=== PATIENT | male | born 1970 | race Caucasian/White ===

== ENCOUNTER 2017-10-13 06:14 | Day surgery (SDC) | payer OTHER ==
[2017-10-13] MEDS: BUPIVACAINE 0.25% (MPF) 30 ML INJ
[2017-10-13] MEDS ORDERED: CEFAZOLIN 2 GM/50 ML (PMX) 50 ML IVPB (06:30)
[2017-10-13] MEDS ORDERED: CEFAZOLIN 1 GM INJ (07:24)
[2017-10-13] MEDS ORDERED: MIDAZOLAM 1 MG/ML 2 ML INJ (07:24)
[2017-10-13] MEDS ORDERED: PROPOFOL 20 ML (07:24)
[2017-10-13] MEDS ORDERED: ROCURONIUM 50 MG INJ (07:24)
[2017-10-13] MEDS ORDERED: KETOROLAC 30 MG INJ (07:53)
[2017-10-13] MEDS ORDERED: ONDANSETRON 4 MG INJ (07:53)
[2017-10-13] MEDS ORDERED: DEXAMETHASONE 4 MG/ML 1 ML INJ (07:53)
[2017-10-13] MEDS ORDERED: METOCLOPRAMIDE 10 MG INJ (07:53)
[2017-10-13] MEDS ORDERED: HYDROmorphONE (0.2 MG/ML) 10ML SYG IV ×3 (08:00)
[2017-10-13] MEDS ORDERED: FENTAnyl 50 MCG/ML VIAL IV ×3 (08:00)
[2017-10-13] MEDS ORDERED: ONDANSETRON 4 MG INJ IV (08:00)
[2017-10-13] MEDS ORDERED: MEPERIDINE 25 MG INJ IV (08:00)
[2017-10-13] MEDS ORDERED: OXYCODONE/ACETAMINOPHEN (5/325) TAB PO ×2 (08:00)
[2017-10-13] MEDS ORDERED: DIPHENHYDRAMINE 50 MG INJ IV (08:00)
[2017-10-13] MEDS ORDERED: EPHEDrine SULFATE 50 MG/5 ML SYG IV (08:00)
[2017-10-13] MEDS ORDERED: LABETALOL HCL 20MG INJ IV (08:00)
[2017-10-13] MEDS ORDERED: METOCLOPRAMIDE 10 MG INJ IV (08:00)
[2017-10-13] MEDS ORDERED: SUGAMMADEX SODIUM 200 MG/2 ML VIAL IV (08:38)
[2017-10-13 08:43] LABS: ADD MAN DIFF? NO
[2017-10-13 08:45] LABS: WHITE BLOOD COUNT 3.3 10^3/ul (4.8-10.8)
[2017-10-13 08:45] LABS: BASOPHILS % 0.9 % (0.0-2.0); EOSINOPHILS % 0.9 % (0.0-7.0); HEMATOCRIT 42.5 % (42.0-52.0); HEMOGLOBIN 14.8 g/dl (14.0-18.0); LYMPHOCYTES # 1.6 10^3/ul (0.8-2.9); LYMPHOCYTES % 48.3 % (15.0-51.0); MEAN CORPUSCULAR HEMOGLOBIN 33.5 pg (29.0-33.0); MEAN CORPUSCULAR HGB CONC 34.8 g/dl (32.0-37.0); MEAN CORPUSCULAR VOLUME 96.2 fl (82.0-101.0); MONOCYTE # 0.3 10^3/ul (0.3-0.9); MONOCYTES % 8.3 % (0.0-11.0); NEUTROPHIL # 1.4 10^3/ul (1.6-7.5); NEUTROPHILS % 41.6 % (39.0-77.0); PLATELET COUNT 279 10^3/UL (140-415); RED BLOOD COUNT 4.42 10^6/ul (4.70-6.10)
[2017-10-13 08:55] LABS: PROTIME 12.2 Sec (11.9-14.9)
[2017-10-13 08:56] LABS: HOLD TRANSMISSIONS 1
[2017-10-13 08:59] LABS: ALANINE AMINOTRANSFERASE 33 IU/L (13-69); ALBUMIN 3.9 g/dl (3.3-4.9); ALBUMIN/GLOBULIN RATIO 1.34; ALKALINE PHOSPHATASE 62 IU/L (42-121); ANION GAP 13 (8-16); ASPARTATE AMINO TRANSFERASE 20 IU/L (15-46); BILIRUBIN,INDIRECT 0.1 mg/dl (0-1.1); BILIRUBIN,TOTAL 0.1 mg/dl (0.2-1.3); CARBON DIOXIDE 27 mmol/L (21-31); CHLORIDE 106 mmol/L (97-110); GLUCOSE 106 mg/dl (70-220); TOTAL PROTEIN 6.8 g/dl (6.1-8.1)
[2017-10-13 09:00] LABS: BLOOD UREA NITROGEN 15 mg/dl (7-20); CALCIUM 9.5 mg/dl (8.4-10.2); CREATININE 0.69 mg/dl (0.61-1.24); POTASSIUM 3.9 mmol/L (3.5-5.1); SODIUM 142 mmol/L (135-144)
[2017-10-13 10:05] LABS: ERYTHROCYTE SEDIMENTATION RATE 6 mm/Hr (0-15)
== END 2017-10-13 11:10 | disposition home or self-care (01) ==
LOC: SDS 06:14
DX: N43.3 Hydrocele, unspecified (principal); N43.41 Spermatocele of epididymis, single
CPT/HCPCS: 54840; 80053; 85025; 85610; 85651; 85730; 88304; 93005